=== PATIENT | male | born 1970 | race Caucasian/White ===

== ENCOUNTER 2017-11-14 22:20 | Emergency (ER) | payer OTHER ==
[2017-11-14 22:26] VITALS: BP 138/83; PULSE 69; RESP 15; TEMP 98.5
[2017-11-14] MEDS ORDERED: PROPARACAINE 0.5% OPHTH DROPS 15 ML BTL BOTH EYES STA (22:32)
--- NOTE | 2017-11-14 23:04 | ED ---
Eye Problem HPI - General Chief complaint: Eye Problems Stated complaint: FB in eye-[facility] Time Seen by Provider: 11/14/17 22:53 Source: patient, RN notes reviewed Mode of arrival: ambulatory Limitations: no limitations - History of Present Illness Initial comments: 47 yo male no past medical history who presents today for chief complaint of right eye irritation and foreign body. Patient states that he was working with plastic piping and when he went to those times It today using a metal tool, he felt irritation to his right eye shortly after. 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 Patient presented emergency department today for foreign body removal. Upon arrival patient's vital signs stable. Patient is to right eye discomfort, redness and watering. Patient denies vision changes, headache, nausea, vomiting, eye discharge. Patient denies any recent fever, chills, shortness of breath, chest pain, back pain, abdominal pain, nausea or vomiting, numbness or tingling, dysuria or hematuria, constipation or diarrhea, headaches or visual changes, or any other complaints. - Related Data Home Medications Medication Instructions Recorded Confirmed No Known Home Medications 11/14/17 11/14/17 Allergies Allergy/AdvReac Type Severity Reaction Status Date / Time No Known Allergies Allergy Verified 11/14/17 22:26 Review of Systems ROS Statement: Those systems with pertinent positive or pertinent negative responses have been documented in the HPI. ROS Other: All systems not noted in ROS Statement are negative. Constitutional: Denies: fever, chills Eyes: Reports: as per HPI, eye pain. Denies: eye discharge, vision change ENT: Denies: ear pain Respiratory: Denies: cough, dyspnea Cardiovascular: Denies: chest pain, palpitations Endocrine: Denies: fatigue Gastrointestinal: Denies: abdominal pain, vomiting Genitourinary: Denies: urgency, dysuria Skin: Denies: rash, lesions Neurological: Denies: headache, weakness Past Medical History Past Medical History: No Reported History History of Any Multi-Drug Resistant Organisms: None Reported Past Surgical History: No Surgical Hx Reported Past Psychological History: No Psychological Hx Reported Smoking Status: Current every day smoker Past Alcohol Use History: Occasional Past Drug Use History: None Reported General Exam - General Exam Comments Initial Comments: General: The patient is awake and alert, in no distress, and does not appear acutely ill. Eye: no erythema, swelling or changes of this right soft tissues of the eyes or eyelids bilaterally. Pupils +3 are equal, round and reactive to light, extra- ocular movements are intact, no pain with extraocular eye movement. no conjugate gaze or APD. No nystagmus. patient has neither direct or consensual photophobia both contract and consensual response are intact. There is a foreign body visualized to the 5 o'clock position in the cornea of the right eye. There is injection of the right conjunctiva.. No signs of icterus. slit lamp exam reveals a metal foreign body with rust ring. Fluorescein exam revealed uptake at the 5 o'clock position, no other areas of uptake, negative Ariel sign. IOP OD 12 OS 16. VA OS 20/20 OD 20/25. Visual hutson intact to confrontation bilaterally. Ears, nose, mouth and throat: There are moist mucous membranes and no oral lesions. Neck: The neck is supple, there is no tenderness or JVD. Cardiovascular: There is a regular rate and rhythm. No murmur, rub or gallop is appreciated. Respiratory: Lungs are clear to auscultation, respirations are non-labored, breath sounds are equal. No wheezes, stridor, rales, or rhonchi. Gastrointestinal: [Soft, non-distended, non-tender abdomen without masses or organomegaly noted. There is no rebound or guarding present. No CVA tenderness. Bowel sounds are unremarkable.] Musculoskeletal: Normal ROM, no tenderness. Strength 5/5. Sensation intact. Pulses equal bilaterally 2+. Neurological: A&O x 3. CN II-XII intact, There are no obvious motor or sensory deficits. Coordination appears grossly intact. Speech is normal. Skin: Skin is warm and dry and no rashes or lesions are noted. Psychiatric: Cooperative, appropriate mood & affect, normal judgment. Limitations: no limitations Course Vital Signs 11/14/17 22:24 Temperature 98.5 F Pulse Rate 69 Respiratory 15 Rate Blood Pressure 138/83 O2 Sat by Pulse 96 Oximetry Procedures - Procedures Initial comment: 2 drops of proparacaine were administered to the right eye, foreign body was visualized without slit lamp, Q-tip was used to remove foreign body. Fluorescein exam revealed no evidence of foreign body, however uptake where it was removed from, with prominent rust ring. No other areas of uptake. Negative Ariel sign. Medical Decision Making - Medical Decision Making 47 year male with chief complaint of right eye foreign body. Foreign body was removed using a cotton Q-tip. Rust ring removal was attempted with Auger brush , majority of the rust ring was removed however patient will require further rust removal from ophthalmology in 24 hours. Case is discussed in detail with Dr. Bhandari who evaluated the patient in person. Patient will be started on an cipro abx drop 1-2 drops every 6 hours and f/u with Dr. Villalobos. Pt agreed with plan and was discharged in stable condition. Disposition Clinical Impression: Foreign body of right eye Disposition: HOME SELF-CARE Condition: Good Instructions: Eye Foreign Body (ED), Eye Lubricant (Into the eye) Additional Instructions: Please use medication as discussed. Please follow-up with ophthalmology in 24 hours. Please return to emergency room if the symptoms increase or worsen or for any other concerns. Is patient prescribed a controlled substance at d/c from ED?: No Referrals: Santi Rome DO [Primary Care Provider] - 1-2 days Time of Disposition: 23:05
== END 2017-11-14 23:11 | disposition home or self-care (01) ==
LOC: EC 22:20
DX: T15.01XA Foreign body in cornea, right eye, initial encounter (principal); F17.200 Nicotine dependence, unspecified, uncomplicated; Y93.89 Activity, other specified; Y92.69 Other specified industrial and construction area as the place of occurrence of the external cause; Y99.0 Civilian activity done for income or pay
CPT/HCPCS: 65220; 99283

== ENCOUNTER → 2022-12-11 | Outpatient (CLI) | payer BC ==
--- NOTE | 2022-12-11 11:21 | XR ---
EXAMINATION TYPE: XR abdomen 2V DATE OF EXAM: 12/11/2022 COMPARISON: NONE HISTORY: Nausea and vomiting TECHNIQUE: One view abdominal series FINDINGS: The osseous structures are intact. The bowel gas pattern is nonspecific. Lung bases are clear. Bila teral hip arthropathy. Vascular phleboliths. Sclerosis of the SI joints suggest arthritic change. Yong cification along the right greater trochanter is chronic. IMPRESSION: 1. Nonspecific abdomen.
[2022-12-11 15:46] LABS: Basophils # (A) 0.07 X 10*3/uL (0.00-0.10); Basophils % (A) 0.8 %; Eosinophils # (A) 0.16 X 10*3/uL (0.04-0.35); Eosinophils % (A) 1.8 %; HCT 44.4 % (39.6-50.0); HGB 14.7 d/dL (13.0-17.0); Lymphocytes # (A) 3.05 X 10*3/uL (0.90-5.00); Lymphocytes % (A) 34.2 %; MCH 32.6 pg (27.0-32.0); MCHC 33.1 d/dL (32.0-37.0); MCV 98.4 FL (80.0-97.0); Mean Platelet Volume 10.5 FL (9.5-12.2); Monocytes # (A) 0.41 X 10*3/uL (0.20-1.00); Monocytes % (A) 4.6 %; NRBC Per 100 WBC 0 X 10*3/uL (0.00-0.01); Neutrophils % (A) 58.3 %; Platelet Count 222 X 10*3/uL (140-440); RBC 4.51 X 10*6/uL (4.40-5.60); RDW 12.7 % (11.5-14.5); WBC 8.92 X 10*3/uL (4.50-10.00)
[2022-12-11 15:56] LABS: ALT 25 U/L (10-49); AST 16 U/L (14-35); Albumin 4.6 d/dL (3.8-4.9); Albumin/Globulin Ratio 2.42 Ratio (1.60-3.17); Alkaline Phosphatase 51 U/L (41-126); Amylase 26 U/L (23-121); Blood Urea Nitrogen 10.3 mg/dL (9.0-27.0); Calcium 9.9 mg/dL (8.7-10.3); Carbon Dioxide 27.8 mmol/L (21.6-31.8); Chloride 106 mmol/L (96-109); Globulin 1.9 d/dL (1.6-3.3); Glucose 92 mg/dL (70-110); Lipase 20 U/L (14-60); Potassium 4.1 mmol/L (3.5-5.5); Sodium 142 mmol/L (135-145); Total Bilirubin 0.5 mg/dL (0.3-1.2); Total Protein 6.5 d/dL (6.2-8.2)
== END | disposition home or self-care (01) ==
LOC: RADXRMAIN 09:22
PROVIDERS: ATTEND Physician Assistant
DX: R11.2 Nausea with vomiting, unspecified (principal)
CPT/HCPCS: 74019; 80053; 82150; 83690; 85025